=== PATIENT | female | born 1940 | race Caucasian/White ===

== ENCOUNTER → 2018-02-23 08:38 | Outpatient (CLI) | payer MEDICARE, BC, SELFPAY ==
--- NOTE | 2018-02-23 08:41 | XR_ITS ---
XR DEXA axial skeleton HISTORY: ITS.REASON: screening ORDERING PHYSICIAN: Darryn Gomez MD PATIENT AGE: 78 years COMPARISON: 02/19/2017 FINDINGS: The BMD measured at the Right femoral neck is 0.864 g/cm squared with a T score of -1.3. This is considered Osteopenic according to the World Health Organization criteria. Fracture risk is Moderate. Treatment is advised. The L1 L4 density has a T score 0.5 and has increased by 2.6%. The mean density of the hips has decreased by 1.1%. IMPRESSION: Osteopenia with moderate fracture risk. Suggest treatment and follow-up exam in February 2020
== END ==
PROVIDERS: Family Provider Family Medicine; PCP Family Medicine; Visit Provider Obstetrics & Gynecology
DX: Z78.0 Asymptomatic menopausal state (principal)
CPT/HCPCS: 77080

== ENCOUNTER → 2018-09-24 07:29 | Outpatient (CLI) | payer MEDICARE, OTHER, SELFPAY ==
--- NOTE | 2018-09-24 07:44 | XR_ITS ---
XR lumbar spine min 4V Ordering Physician: Vincent Lozano MD Patient Age: 78 years: Female HISTORY: ITS.REASON: PERIPHERAL NEUROPATHY , RT LOW BACK PAIN TECHNIQUE: Five-view lumbar spine series COMPARISON :None FINDINGS The vertebral bodies are intact no compression fractures evident. Borderline to mild disc space narrowing at L4/5 to the right suggested.. AP view shows barely appreciable levocurvature at the L4-S1 level. . Transverse processes, SI joints pedicles appear satisfactory Minor Spina bifida occulta S1 noted. Minor early anterior marginal osteophytes L2/3 & 4/5 noted Developing degenerative facet arthropathy changes suggested L4/5 facet bilaterally, as well as right L5/S1 facet more so than left. IMPRESSION: ... 1. mild degenerative changes lumbar spine:. ... Developing Facet arthropathy L4/5 & L5/S1 most notable ... Borderline/scant disc space narrowing to the right L4/5 2. No acute findings. No compression fractures.
--- NOTE | 2018-09-24 07:44 | XR_ITS ---
XR hip RT 2-3V w/pelvis Ordering Physician: Vincent Lozano MD Patient Age: 78 years: Female HISTORY: ITS.REASON: PERIPHERAL NEUROPATHY , RT LOW BACK PAIN . Low back pain . Right hip pain. Pain extends down to the right hip No trauma. No fall. TECHNIQUE: RIGHT HIP:: AP and frog-leg views right hip AP PELVIS included COMPARISON :No prior old studies Lumbar spine series from today review in conjunction with right hip FINDINGS Right Hip: intact and within normal limits. Normal head and neck intact no fracture. Normal contour and density. AP pelvis: Appears intact. The AP view of head shows the hips are symmetric with joint space well maintained bilaterally. Sacrum, SI joints, iliac crest, pubis as well as superior and inferior ramus intact and satisfactory bilaterally. A postsurgical changes are seen at the pelvis bilaterally-likely from previous hysterectomy IMPRESSION: 1. Right hip intact. Negative. 2. Osseous pelvis intact. Negative.
[2018-09-24 08:16] LABS: Basophils % 0.7 % (0.1-2.0); Eosinophils # 0.3 K/mm3 (0.0-0.4); Hematocrit 42.4 % (37.0-47.0); Hemoglobin 14.1 g/dL (12.2-16.2); Lymphocytes # 2.3 K/mm3 (0.7-4.5); Lymphocytes % 38.3 % (10-50); Mean Corpuscular HGB Conc 33.2 g/dL (31.8-35.4); Mean Corpuscular Volume 96.4 fl (81-99); Mean Platelet Volume 7.3 fl (7.4-10.4); Monocytes # 0.5 K/mm3 (0.1-1.0); Monocytes % 8.2 % (1.7-9.3); Neutrophils # 2.8 K/mm3 (1.8-7.8); Neutrophils % 47.8 % (37.0-80.0); Platelet Count 280 K/mm3 (142-424); Red Blood Count 4.39 M/mm3 (4.20-5.40); Red Cell Distribution Width 12.8 % (11.5-17.5); White Blood Count 5.9 K/mm3 (4.8-10.8)
[2018-09-24 09:22] LABS: Alanine Aminotransferase 45 U/L (12-78); Albumin Level 3.6 gm/dL (3.4-5.0); Albumin/Globulin Ratio 1.1 (1.1-1.8); Alkaline Phosphatase 68 U/L (46-116); Anion Gap 15.1 mEq/L (5-15); Aspartate Amino Transferase 27 U/L (15-37); Bilirubin,Total 0.6 mg/dL (0.2-1.0); Blood Urea Nitrogen 11 mg/dL (7-18); Carbon Dioxide 27 mmol/L (21.0-32.0); Chloride 104 mmol/L (98-107); Creatinine,Serum 0.78 mg/dL (0.55-1.02); Estimated Glomerular Filt Rate 72 ml/min (>60); GFR (African American) 87 ML/MIN (>60); Globulin 3.4 gm/dl (1.3-3.2); Glucose 134 mg/dL (74-106); Potassium 4.1 mmoL/L (3.5-5.1); Sodium 142 mmol/L (136-145); T4 (Thyroxine) 6.9 ug/dl (4.7-13.3); Thyroid Stimulating Hormone 1.86 uIU/ml (0.358-3.740)
[2018-09-26 17:24] LABS: Folate >20.0 ng/mL (>3.0); Vitamin B12 1137 pg/mL (232-1245)
== END ==
PROVIDERS: PCP Family Medicine; Visit Provider Family Medicine
DX: Z79.899 Other long term (current) drug therapy (principal); M54.5 Low back pain; G62.9 Polyneuropathy, unspecified
CPT/HCPCS: 36415; 72110; 73502; 80053; 82607; 82746; 83036; 84436; 84443; 85025

== ENCOUNTER → 2018-12-29 07:27 | Outpatient (CLI) | payer MEDICARE, OTHER, SELFPAY ==
[2018-12-29 09:40] LABS: Anion Gap 12.1 mEq/L (5-15); Blood Urea Nitrogen 16 mg/dL (7-18); Carbon Dioxide 29 mmol/L (21.0-32.0); Chloride 104 mmol/L (98-107); Chol/HDL Ratio 3.6 (1-3.5); Cholesterol 197 mg/dL (140-200); Creatinine,Serum 0.75 mg/dL (0.55-1.02); Estimated Glomerular Filt Rate 75 ml/min (>60); GFR (African American) 91 ML/MIN (>60); Glucose 93 mg/dL (74-106); HDL Cholesterol 55 mg/dL (29-89); LDL Cholesterol 109 mg/dL (0-130); Potassium 4.1 mmoL/L (3.5-5.1); Sodium 141 mmol/L (136-145); Triglycerides 165 mg/dL (30-200); VLDL Cholesterol 33 mg/dL (0-40)
[2018-12-29 11:36] LABS: Hemoglobin A1C 6.2 % (0.0-7.0)
== END ==
PROVIDERS: Visit Provider Family Medicine
DX: E11.9 Type 2 diabetes mellitus without complications (principal); E78.5 Hyperlipidemia, unspecified
CPT/HCPCS: 36415; 80048; 80061; 83036

== ENCOUNTER → 2019-06-29 07:23 | Outpatient (CLI) | payer MEDICARE, OTHER, SELFPAY ==
[2019-06-29 08:41] LABS: Chloride 101 mmol/L (98-107); Sodium 138 mmol/L (136-145)
[2019-06-29 08:44] LABS: Alanine Aminotransferase 25 U/L (12-78); Albumin Level 4.2 g/dl (3.5-5.0); Albumin/Globulin Ratio 1.5 (1.1-1.8); Alkaline Phosphatase 55 U/L (38-126); Aspartate Amino Transferase 40 U/L (14-36); Bilirubin,Total 0.5 mg/dl (0.2-1.3); Blood Urea Nitrogen 20 mg/dl (7-17); Carbon Dioxide 31 mmol/L (22.0-30.0); Cholesterol 208 mg/dl (140-200); Estimated Glomerular Filt Rate 81 ml/min (>60); GFR (African American) 98 ML/MIN (>60); Globulin 2.8 g/dL (1.3-3.2); Triglycerides 89 mg/dl (30-150); VLDL Cholesterol 18 mg/dL (0-40)
[2019-06-29 08:45] LABS: Calcium 9.6 mg/dl (8.4-10.2); Chol/HDL Ratio 2.9 (1-3.5); Glucose 98 mg/dl (74-100); HDL Cholesterol 72 mg/dl (40-60)
[2019-06-29 08:56] LABS: Direct LDL Cholesterol 113.89 mg/dL (100-129)
[2019-06-29 09:47] LABS: Hemoglobin A1C 6.3 % (4.0-6.0)
== END ==
PROVIDERS: Visit Provider Family Medicine
DX: E11.9 Type 2 diabetes mellitus without complications (principal); Z13.220 Encounter for screening for lipoid disorders
CPT/HCPCS: 36415; 80053; 80061; 83036

== ENCOUNTER → 2019-12-30 07:17 | Outpatient (CLI) | payer MEDICARE, OTHER, SELFPAY ==
[2019-12-30 09:21] LABS: Chloride 104 mmol/L (98-107); Potassium 4.4 mmoL/L (3.5-5.1); Sodium 141 mmol/L (136-145)
[2019-12-30 09:24] LABS: Alanine Aminotransferase 22 U/L (12-78); Albumin Level 4.1 g/dl (3.5-5.0); Albumin/Globulin Ratio 1.6 (1.1-1.8); Alkaline Phosphatase 52 U/L (38-126); Anion Gap 11.4 mEq/L (5-15); Aspartate Amino Transferase 36 U/L (14-36); Bilirubin,Total 0.6 mg/dl (0.2-1.3); Blood Urea Nitrogen 20 mg/dl (7-17); Calcium 9.3 mg/dl (8.4-10.2); Carbon Dioxide 30 mmol/L (22.0-30.0); Estimated Glomerular Filt Rate 81 ml/min (>60); GFR (African American) 98 ML/MIN (>60); Globulin 2.6 g/dL (1.3-3.2); Glucose 89 mg/dl (74-100); Total Protein,Serum 6.7 g/dl (6.3-8.2)
[2019-12-30 09:43] LABS: Hemoglobin A1C 6.2 % (4.0-6.0)
== END ==
PROVIDERS: Visit Provider Physician Assistant
DX: E11.9 Type 2 diabetes mellitus without complications (principal)
CPT/HCPCS: 36415; 80053; 83036

== ENCOUNTER → 2020-06-29 07:43 | Outpatient (CLI) | payer OTHER, SELFPAY ==
[2020-06-29 08:20] LABS: Basophils # 0.1 K/mm3 (0-0.2); Basophils % 0.9 % (0.1-2.0); Eosinophils # 0.2 K/mm3 (0.0-0.4); Eosinophils % 3.7 % (0.1-12.0); Hematocrit 44.4 % (37.0-47.0); Hemoglobin 14.3 g/dL (12.2-16.2); Lymphocytes # 1.9 K/mm3 (0.7-4.5); Lymphocytes % 33.2 % (10-50); Mean Corpuscular HGB Conc 32.2 g/dL (31.8-35.4); Mean Corpuscular Volume 99.6 fl (81-99); Mean Platelet Volume 7.7 fl (7.4-10.4); Monocytes # 0.4 K/mm3 (0.1-1.0); Monocytes % 6.2 % (1.7-9.3); Neutrophils # 3.2 K/mm3 (1.8-7.8); Neutrophils % 55.9 % (37.0-80.0); Platelet Count 293 K/mm3 (142-424); Red Blood Count 4.46 M/mm3 (4.20-5.40); Red Cell Distribution Width 13.3 % (11.5-17.5); White Blood Count 5.7 K/mm3 (4.8-10.8)
[2020-06-29 08:31] LABS: Hemoglobin A1C 6.1 % (4.0-6.0)
[2020-06-29 08:57] LABS: Chloride 103 mmol/L (98-107)
[2020-06-29 08:58] LABS: Potassium 4.6 mmoL/L (3.5-5.1); Sodium 140 mmol/L (136-145)
[2020-06-29 09:00] LABS: Alanine Aminotransferase 27 U/L (12-78); Albumin Level 4.7 g/dl (3.5-5.0); Albumin/Globulin Ratio 1.5 (1.1-1.8); Alkaline Phosphatase 65 U/L (38-126); Anion Gap 9.6 mEq/L (5-15); Aspartate Amino Transferase 39 U/L (14-36); Bilirubin,Total 0.5 mg/dl (0.2-1.3); Blood Urea Nitrogen 20 mg/dl (7-17); Carbon Dioxide 32 mmol/L (22.0-30.0); Estimated Glomerular Filt Rate 69 ml/min (>60); GFR (African American) 84 ML/MIN (>60); Globulin 3.1 g/dL (1.3-3.2); Total Protein,Serum 7.8 g/dl (6.3-8.2)
[2020-06-29 09:01] LABS: Calcium 9.8 mg/dl (8.4-10.2); Chol/HDL Ratio 3.2 (1-3.5); Cholesterol 247 mg/dl (140-200); Glucose 115 mg/dl (74-100); HDL Cholesterol 78 mg/dl (40-60); Triglycerides 113 mg/dl (30-150); VLDL Cholesterol 23 mg/dL (0-40)
[2020-06-29 09:12] LABS: Direct LDL Cholesterol 121.21 mg/dL (100-129)
[2020-06-29 09:17] LABS: 25-OH Vitamin D, Total 35.1 ng/mL (30-100)
[2020-06-29 09:31] LABS: Thyroid Stimulating Hormone 2.28 uIU/mL (0.465-4.68)
[2020-06-29 18:45] LABS: Vitamin B12 825 pg/mL (239-931)
[2020-06-29 18:46] LABS: Folate > 20.00 ng/mL
== END ==
PROVIDERS: Visit Provider Family Medicine
DX: E11.9 Type 2 diabetes mellitus without complications (principal); G62.9 Polyneuropathy, unspecified
CPT/HCPCS: 36415; 80053; 80061; 82306; 82607; 82746; 83036; 84443; 85025

== ENCOUNTER → 2020-08-15 09:02 | Outpatient (CLI) | payer MEDICARE, SELFPAY ==
[2020-08-15 10:35] LABS: Coronavirus 19 IgG Antibody Positive (Negative); Coronavirus 19 IgM Antibody Negative (Negative)
== END ==
PROVIDERS: Visit Provider Internal Medicine Gastroenterology
DX: Z01.812 Encounter for preprocedural laboratory examination (principal); Z20.822 Contact with and (suspected) exposure to COVID-19; Z12.11 Encounter for screening for malignant neoplasm of colon
CPT/HCPCS: 36415; 86328

== ENCOUNTER 2020-08-17 07:39 | Day surgery (SDC) | payer MEDICARE, SELFPAY ==
[2020-08-09 12:27] VITALS: BMI 20.4
[2020-08-17] VITALS (7 sets, daily range): BP systolic 98–172; BP diastolic 48–74; PULSE 62–91; RESP 16–20; TEMP 36.3; O2SAT 94–100
--- NOTE | 2020-08-17 09:28 | P.PCN_ITS ---
[facility] Procedure Note Procedure Note:: Colonoscopy Procedure Report: Colonoscopy with cold snare polypectomy Endoscopist: Carlos Grace II, MD Referring physician: Nirav Loznao MD Date of Procedure: August 17, 2020 Equipment: Olympus 190 variable stiffness pediatric colonoscope Sedation: MAC sedation Indication: Mrs. Odom is a 80-year-old female who is here for follow-up screening/surveillance colonoscopy. Her last colonoscopy was approximately 17 years ago. She does think that her maternal grandmother may have had colon cancer. She also states that she has recently had some constipation and has been taking MiraLAX as treatment. She reports no abdominal pain, weight loss or rectal bleeding. Procedure: Prior to the procedure, a history and physical exam was performed, and patient's medications and allergies were reviewed. The risks, benefits and alternatives of the sedation and procedure were discussed with the patient. All questions were answered and informed consent was obtained. The patient was brought to the procedure room. Patient identification and proposed procedure were verified by the physician and the nurse. The patient was placed in a left lateral decubitus position and the scope was passed under direct vision. Throughout the procedure, the patient's blood pressure, pulse, and oxygen saturations were monitored continuously. The colonoscopy was accomplished without difficulty. The patient tolerated the procedure well. Findings: On digital rectal examination there was normal rectal tone. There were no external hemorrhoids. The colonoscope was introduced through the anal canal to the rectum and advanced to the cecum. The ileocecal valve and appendiceal orifice were identified. The scope was advanced a short distance into the ileum which appeared grossly normal. The scope was then withdrawn into the colon. There were 2 colon polyps (cecum x1 (8 to 9 mm) and ascending x1 (4 to 5 mm)) which were both removed via cold snare polypectomy. The remaining transverse colon was grossly normal. There were scattered diverticuli throughout the descending and sigmoid colon (LEFT colon). The rectum itself was normal. Upon retroflexion within the rectum there were grade 1-2 internal hemorrhoids. The preparation was excellent throughout with [place] Preparation Score of 9. The cecal time was 12 minutes. Impression: 1. Colonic polyps x2 2. Left-sided diverticulosis 3. Grade 1-2 internal hemorrhoids Plan: Based upon age and findings, I do not feel that the patient will require any further preventive/surveillance colonoscopy. I would encourage a fiber bowel regimen on a long-term daily maintenance basis (combined MiraLAX plus Metamucil mixed together in 8 to 10 ounces of juice or water by mouth every morning).
--- NOTE | 2020-08-17 15:00 | HMH.ANESCL ---
[facility] Anesthesia Checklist - Patient Identification Patient Identification: Arm Band - Structural Data Admitted From: Home Planned Operative Procedure/s: Colonoscopy Consent for Planned Operative Procedure(s) Verified: Yes Verified Documents: Surgical Consent - NPO Status Verified Time NPO: 00:00 - Airway Assessment C-Spine Mobility Assessed: Yes TMJ Mobility Assessed: Yes Dentition: Good Dentition - Neurological Assessment Level of Consciousness: Awake, Alert - Anesthesia Plan Anesthesia Risk discussed: Yes Anesthesia Plan: Verified ASA Class: II Anesthesia Type: MAC [facility] History Medical History: Reports:: Diabetes Mellitus Type 2 Denies:: Cancer, Diabetes Mellitus Type 1, Internal Pacemaker, MRSA, Seizures *Have you ever received a pneumonia vaccine?: Yes *Have you received a flu vaccine this season?: Yes Other Medical History: Reports: Other Anesthesia experience/problems:: None Other Surgeries: Yes: Other. No: Pacemaker Amputation: No Fractures: Yes - *Social History Smoking Status: Never smoker Alcohol Intake: never Substance Use Type: denies use *Occupational Status:: retired Housing: house Household Members: none *Travel in the last 8 weeks: None Family Hx:: No significant family history
[2020-08-17 15:54] LABS: POC Glucose,Bedside 113 (70-110)
== END 2020-08-17 10:25 | disposition home or self-care (01) ==
LOC: OUTP 07:42
PROVIDERS: PCP Family Medicine; Visit Provider Internal Medicine Gastroenterology
PROC: 0DJD8ZZ Inspection of Lower Intestinal Tract, Via Natural or Artificial Opening Endoscopic (ICD-10-PCS; CPT 45378; principal; 2020-08-17 09:00)
DX: Z12.11 Encounter for screening for malignant neoplasm of colon (principal); K63.5 Polyp of colon; K57.30 Diverticulosis of large intestine without perforation or abscess without bleeding; K64.0 First degree hemorrhoids; E11.9 Type 2 diabetes mellitus without complications; Z88.1 Allergy status to other antibiotic agents; Z88.8 Allergy status to other drugs, medicaments and biological substances; Z79.82 Long term (current) use of aspirin; Z79.899 Other long term (current) drug therapy
CPT/HCPCS: 45385; 82962; 88305

== ENCOUNTER → 2021-01-01 07:18 | Outpatient (CLI) | payer MEDICARE, SELFPAY ==
[2021-01-01 09:41] LABS: Chloride 103 mmol/L (98-107)
[2021-01-01 09:42] LABS: Potassium 4.1 mmoL/L (3.5-5.1); Sodium 141 mmol/L (136-145)
[2021-01-01 09:44] LABS: Blood Urea Nitrogen 16 mg/dl (7-17); Estimated Glomerular Filt Rate 69 ml/min (>60); GFR (African American) 84 ML/MIN (>60)
[2021-01-01 09:45] LABS: Anion Gap 13.1 mEq/L (5-15); Calcium 9.2 mg/dl (8.4-10.2); Carbon Dioxide 29 mmol/L (22.0-30.0); Chol/HDL Ratio 3.2 (1-3.5); Cholesterol 202 mg/dl (140-200); Glucose 93 mg/dl (74-100); HDL Cholesterol 64 mg/dl (40-60); Triglycerides 104 mg/dl (30-150); VLDL Cholesterol 21 mg/dL (0-40)
[2021-01-01 09:56] LABS: Direct LDL Cholesterol 95.81 mg/dL (100-129)
[2021-01-01 10:43] LABS: Hemoglobin A1C 6.3 % (4.0-6.0)
== END ==
PROVIDERS: Visit Provider Family Medicine
DX: E11.9 Type 2 diabetes mellitus without complications (principal); E78.5 Hyperlipidemia, unspecified
CPT/HCPCS: 36415; 80048; 80061; 83036

== ENCOUNTER → 2021-12-19 10:13 | Outpatient (CLI) | payer MEDICARE, SELFPAY ==
--- NOTE | 2021-12-19 10:30 | XR_ITS ---
FINAL REPORT CLINICAL HISTORY: .PAIN FINDINGS: 5 views of the lumbar spine were obtained. There is no evidence of fracture or dislocation. The vertebral alignment is normal. There are mild and moderate degenerative changes. There is facet arthropathy in the lower lumbar spine. No paraspinous soft tissue abnormalities identified. There is mild vascular calcification. IMPRESSION: Mild and moderate degenerative changes. Reviewed, Interpreted and Dictated by Marc Oneill III, MD Transcribed by Adrian Ortiz Authenticated and [facility]
--- NOTE | 2021-12-19 10:30 | XR_ITS ---
FINAL REPORT CLINICAL HISTORY: SACROILIITIS FINDINGS: 2 views of the left hip and an AP pelvis were obtained. There is no acute fracture or dislocation. There is mild degenerative change of both hips. There are no soft tissue abnormalities. IMPRESSION: Mild degenerative change. Reviewed, Interpreted and Dictated by Marc Oneill III, MD Transcribed by Adrian Ortiz Authenticated and [facility]
--- NOTE | 2021-12-19 10:30 | XR_ITS ---
FINAL REPORT CLINICAL HISTORY: ACUTE PAIN OF LEFT KNEE FINDINGS: Three views of the left knee reveal no evidence of fracture or dislocation. The bony alignment is normal. There is mild medial compartment and patellofemoral degenerative change. There is no evidence of joint effusion. No localized soft tissue abnormality is seen. IMPRESSION: Mild degenerative change. Reviewed, Interpreted and Dictated by Marc Oneill III, MD Transcribed by Adrian Ortiz Authenticated and [facility]
== END ==
PROVIDERS: PCP Family Medicine; Visit Provider Physician Assistant
DX: M25.562 Pain in left knee (principal); M46.1 Sacroiliitis, not elsewhere classified
CPT/HCPCS: 72110; 73502; 73562

== ENCOUNTER → 2022-01-16 08:16 | Outpatient (CLI) | payer MEDICARE, SELFPAY ==
[2022-01-16 08:58] LABS: Alanine Aminotransferase 33 U/L (12-78); Albumin Level 4.4 g/dl (3.5-5.0); Albumin/Globulin Ratio 1.6 (1.1-1.8); Alkaline Phosphatase 76 U/L (38-126); Anion Gap 13.3 mEq/L (5-15); Aspartate Amino Transferase 40 U/L (14-36); Bilirubin,Total 0.6 mg/dl (0.2-1.3); Blood Urea Nitrogen 16 mg/dl (7-17); Calcium 8.9 mg/dl (8.4-10.2); Carbon Dioxide 31 mmol/L (22.0-30.0); Chloride 100 mmol/L (98-107); Estimated Glomerular Filt Rate 81 ml/min (>60); GFR (African American) 97 ML/MIN (>60); Globulin 2.7 g/dL (1.3-3.2); Glucose 108 mg/dl (74-100); Potassium 4.3 mmoL/L (3.5-5.1); Sodium 140 mmol/L (136-145); Total Protein,Serum 7.1 g/dl (6.3-8.2)
[2022-01-16 11:46] LABS: Hemoglobin A1C 6.3 % (4.0-6.0)
== END ==
PROVIDERS: PCP Family Medicine; Visit Provider Family Medicine
DX: E11.9 Type 2 diabetes mellitus without complications (principal)
CPT/HCPCS: 36415; 80053; 83036

== ENCOUNTER → 2022-03-12 11:31 | Outpatient (CLI) | payer MEDICARE, SELFPAY ==
--- NOTE | 2022-03-12 11:37 | XR_ITS ---
FINAL REPORT CLINICAL HISTORY: PAIN FINDINGS: RIGHT WRIST Three views demonstrate no acute fracture or dislocation. The visualized joint spaces are normally aligned. There is soft tissue edema over the dorsum of the wrist. IMPRESSION: Soft tissue edema with no acute bony abnormality. Reviewed, Interpreted and Dictated by Herberth Puckett MD Transcribed by Chyna Alvares Authenticated and [facility]
--- NOTE | 2022-03-12 11:37 | XR_ITS ---
FINAL REPORT CLINICAL HISTORY: PAIN FINDINGS: RIGHT KNEE 3 views of the right knee were obtained. There is no acute fracture or dislocation. Visualized joint spaces are normally aligned. Joint spaces are intact. Soft tissues are unremarkable. IMPRESSION: No acute bony abnormality. Reviewed, Interpreted and Dictated by Herberth Puckett MD Transcribed by Chyna Alvares Authenticated and [facility]
== END ==
PROVIDERS: PCP Family Medicine; Visit Provider Nurse Practitioner Family
DX: M25.531 Pain in right wrist (principal)
CPT/HCPCS: 73110; 73562

== ENCOUNTER → 2022-04-05 08:02 | Outpatient (CLI) | payer MEDICARE, SELFPAY ==
[2022-04-05 08:39] LABS: Basophils % 0.8 % (0.1-2.0); Eosinophils # 0.2 K/mm3 (0.0-0.4); Eosinophils % 4.2 % (0.1-12.0); Hematocrit 42.8 % (37.0-47.0); Hemoglobin 13.8 g/dL (12.2-16.2); Lymphocytes # 1.6 K/mm3 (0.7-4.5); Lymphocytes % 28.7 % (10-50); Mean Corpuscular HGB Conc 32.1 g/dL (31.8-35.4); Mean Corpuscular Hemoglobin 31.6 pg (27.0-31.2); Mean Corpuscular Volume 98.6 fl (81-99); Mean Platelet Volume 8.3 fl (7.4-10.4); Monocytes # 0.4 K/mm3 (0.1-1.0); Monocytes % 6.8 % (1.7-9.3); Neutrophils # 3.4 K/mm3 (1.8-7.8); Neutrophils % 59.5 % (37.0-80.0); Platelet Count 349 K/mm3 (142-424); Red Blood Count 4.35 M/mm3 (4.20-5.40); Red Cell Distribution Width 12.9 % (11.5-17.5); White Blood Count 5.7 K/mm3 (4.8-10.8)
[2022-04-05 09:18] LABS: Alanine Aminotransferase 29 U/L (12-78); Albumin Level 4.4 g/dl (3.5-5.0); Albumin/Globulin Ratio 1.6 (1.1-1.8); Alkaline Phosphatase 89 U/L (38-126); Anion Gap 10.3 mEq/L (5-15); Aspartate Amino Transferase 43 U/L (14-36); Bilirubin,Total 0.6 mg/dl (0.2-1.3); Blood Urea Nitrogen 20 mg/dl (7-17); Calcium 9.8 mg/dl (8.4-10.2); Carbon Dioxide 32 mmol/L (22.0-30.0); Chloride 102 mmol/L (98-107); Estimated Glomerular Filt Rate 69 ml/min (>60); GFR (African American) 84 ML/MIN (>60); Globulin 2.7 g/dL (1.3-3.2); Glucose 105 mg/dl (74-100); Potassium 4.3 mmoL/L (3.5-5.1); Sodium 140 mmol/L (136-145); Total Protein,Serum 7.1 g/dl (6.3-8.2)
[2022-04-05 09:25] LABS: Erythrocyte Sedimentation Rate 41 mm/hr (0-30)
[2022-04-05 09:35] LABS: 25-OH Vitamin D, Total 41.7 ng/mL (30-100)
[2022-04-05 09:50] LABS: Thyroid Stimulating Hormone 1.64 uIU/mL (0.465-4.68)
[2022-04-05 10:09] LABS: Vitamin B12 952 pg/mL (239-931)
[2022-04-09 10:58] LABS: Vitamin C 1.5 mg/dL (0.4-2.0)
== END ==
PROVIDERS: PCP Family Medicine; Visit Provider Family Medicine
DX: E11.9 Type 2 diabetes mellitus without complications (principal); K05.10 Chronic gingivitis, plaque induced; K12.1 Other forms of stomatitis; M85.89 Other specified disorders of bone density and structure, multiple sites
CPT/HCPCS: 36415; 80053; 82180; 82306; 82607; 83735; 84443; 85025; 85651

== ENCOUNTER → 2023-03-16 09:09 | Outpatient (CLI) | payer MEDICARE, SELFPAY ==
--- NOTE | 2023-03-16 09:22 | XR_ITS ---
FINAL REPORT CLINICAL HISTORY: OSTEOPENIA COMPARISON: None FINDINGS: Using L1-4, the bone mineral density of the spine is 1.088 g/cm2, corresponding to T-score of 0.4, within normal limits. Using the left hip, the bone mineral density of the femoral neck is 0.654 g/cm2, corresponding to a T-score of -1.8, consistent with osteopenia. Using the right hip, the bone mineral density of the femoral neck is 0.679 g/cm2, corresponding to a T-score of -1.5, consistent with osteopenia. FRAX 10 year fracture risk is 4.7% for a hip fracture and 18% for a major osteoporotic fracture. NOTE: T-score: Standard deviation compared with peak bone mass of young adult mean. *Following the recommendations of the International Society of Bone densitometry, classification of hip BMD is based on the lower of two T-scores; total hip or femoral neck. IMPRESSION: Normal bone mineral density of the lumbar spine, with diminished bone mineral density in the bilateral hips consistent with osteopenia. Reviewed, Interpreted and Dictated by Herberth Puckett MD Transcribed by Shanel Caldwell Authenticated and . [facility]
== END ==
PROVIDERS: PCP Family Medicine; Visit Provider Family Medicine
DX: Z13.820 Encounter for screening for osteoporosis; Z78.0 Asymptomatic menopausal state; M85.89 Other specified disorders of bone density and structure, multiple sites
CPT/HCPCS: 77080